=== PATIENT | female | born 1945 | race Caucasian/White ===

== ENCOUNTER 2022-01-18 19:38 | Emergency (ER) | payer MEDICARE ==
[2022-01-18 20:11] LABS: BASOPHIL 0.6 % (0-2); EOSINOPHIL 1.5 % (0-7); HCT 42.1 % (37.0-47.0); HGB 14.1 g/dl (12.5-16.0); LYMPHOCYTE 19.9 % (15-48); MCH 31.2 pg (25.0-31.0); MCHC 33.5 g/dL (32.0-36.0); MCV 93.1 fL (78.0-100.0); MONOCYTE 8.1 % (0-12); MPV 10.1 fL (6.0-9.5); NEUTROPHIL 69.6 % (41-80); NRBC 0; PLT 226 K/uL (150-400); RBC 4.52 M/uL (4.20-5.40); RDW 13.6 % (11.5-14.0); WBC 10.2 K/uL (4.0-10.5)
[2022-01-18 20:31] LABS: ALBUMIN 3.6 g/dL (3.4-5.0); BILIRUBIN - TOTAL 0.4 mg/dL (0.2-1.0); BUN/CREAT RATIO (CALC) 21.3 RATIO; CREATININE 0.94 mg/dL (0.51-0.95); GLOBULIN (CALCULATION) 3.5 g/dL; MAGNESIUM 1.7 mg/dL (1.8-2.4); TOTAL PROTEIN 7.1 g/dL (6.4-8.2)
== END 2022-01-18 23:06 | disposition home or self-care (01) ==
LOC: FER 19:38
PROVIDERS: Emergency Medicine
DX: I48.0 Paroxysmal atrial fibrillation (principal); E11.9 Type 2 diabetes mellitus without complications; Z88.1 Allergy status to other antibiotic agents; Z79.4 Long term (current) use of insulin
CPT/HCPCS: 36415; 71045; 80053; 83735; 83880; 84439; 84443; 84484; 85025; 93005; J1170; J2405; J3475